=== PATIENT | female | born 1960 | race Caucasian/White ===

== ENCOUNTER → 2017-02-15 | Outpatient (CLI) | payer OTHER ==
[~2017-02-15] MED LIST: ALL DAY ALLERGY10 M2 PO; ANTIVERT 25MG T25 MG PO; ARIMIDEX1 MG PO; CALCIUM600 MG PO; CARAFATE1 GM PO; CELEXA20 MG PO; COLACE 100MG C100 MG PO; DITROPAN 5 MG TA5 MG PO; DULERA 100 MCG8.8 GM INH; FENOFIBRATE160 MG PO; FLOVENT 440.088 GM/I; FOSAMAX70 MG PO; GABAPENTIN600 MG PO; LASIX40 MG PO; METOPROLOL TART25 MG PO; MULTIVITAMINS1 EAC1 PO; NITROSTAT0.4 MG SL; NORCO 5-325 TA1 EACH PO; OMEPRAZOLE40 MG PO; POTASSIUM CHLO20 ME1 PO; SIMVASTATIN20 MG PO; SUMATRIPTAN SU100 MG PO; SYMBICORT 16010.2 GM INH; VENTOLIN HFA 66.7 GM INH; ZOFRAN4 MG PO
== END ==
LOC: KOH-I 13:45
DX: M25.571 Pain in right ankle and joints of right foot (principal); Z98.890 Other specified postprocedural states
CPT/HCPCS: 73721

== ENCOUNTER → 2017-02-18 | Outpatient (CLI) | payer OTHER | LOC: RT 09:52 | DX: I10 Essential (primary) hypertension (principal); M13.862 Other specified arthritis, left knee; G89.4 Chronic pain syndrome; E78.2 Mixed hyperlipidemia; Z88.8 Allergy status to other drugs, medicaments and biological substances; Z88.2 Allergy status to sulfonamides | CPT/HCPCS: 93005 ==

== ENCOUNTER → 2017-03-19 | Outpatient (CLI) | payer OTHER | LOC: RAD 14:06 | DX: K59.09 Other constipation (principal) | CPT/HCPCS: 74000 ==

== ENCOUNTER → 2017-03-25 | Day surgery (SDC) | payer OTHER | END | disposition home or self-care (01) | LOC: OR 06:34 | PROVIDERS: Internal Medicine Gastroenterology | PROC: 0DB68ZX Excision of Stomach, Via Natural or Artificial Opening Endoscopic, Diagnostic (ICD-10-PCS; principal; 2017-03-25 10:25) | DX: K29.50 Unspecified chronic gastritis without bleeding (principal); K44.9 Diaphragmatic hernia without obstruction or gangrene; I10 Essential (primary) hypertension; E78.5 Hyperlipidemia, unspecified; K59.03 Drug induced constipation; E66.9 Obesity, unspecified; Z85.3 Personal history of malignant neoplasm of breast; Z88.2 Allergy status to sulfonamides; Z88.8 Allergy status to other drugs, medicaments and biological substances; Z79.891 Long term (current) use of opiate analgesic; Z79.899 Other long term (current) drug therapy; Z90.49 Acquired absence of other specified parts of digestive tract; Z90.710 Acquired absence of both cervix and uterus | CPT/HCPCS: 74000; J2250; J3010; J7030 ==

== ENCOUNTER → 2020-12-31 | Outpatient (CLI) | payer OTHER ==
[~2020-12-31] MED LIST changes: +24HR ALLERGY REL5 MG PO; +ALBUTEROL2.5 MG/3 M INH; +ARIMIDEX 1 MG TA1 MG PO; +BUSPIRONE HCL5 MG PO; +CALCIUM CITRAT1 EAC4 PO; +CITALOPRAM HBR20 MG PO; +COLACE100 MG PO; +DULERA 200 MCG8.8 GM INH; +EPINEPHRIN0.3 MG/0.3 INJ; +FEXOFENADINE H180 MG PO; +FLEXERIL 10 MG10 MG PO; +FLOMAX 0.4 MG0.4 MG PO; +FLUTICASONE SPRAY; +GABAPENTIN400 MG PO; +GLUCOPHAGE500 MG PO; +IBUPROFEN800 MG PO; +KEFLEX CAP 500500 MG PO; +KEFLEX500 MG PO; +LEVOCETIRIZINE D5 MG PO; +LIORESAL TAB 1010 MG PO; +LOVENOX SY40 MG/0.4 SQ; +MECLIZINE HCL25 MG PO; +MOBIC15 MG PO; +NEURONTIN600 MG PO; +NEURONTIN800 MG PO; +NORCO 10-325 T1 EACH PO; +NORFLEX 100 MG100 MG PO; +PERCOCET 10-321 EACH PO; +PHENERGAN 25 MG25 M1 PO; +PREDNISONE 50 M50 MG PO; +PREDNISONE20 MG PO; +PROTONIX40 MG PO; +SINGULAIR10 MG PO; +SUMATRIPTAN SUC50 MG PO; +TOPROL XL25 MG PO; +TYLENOL 500 MG500 MG PO; +VITAMIN C 500500 MG PO; +VITAMIN C500 M1 PO; +VITAMIN C500 M4 PO; +VOLTAREN GEL 1 % TOP; +WIXELA 250-501 EACH INH
== END ==
LOC: KOH-I 10:45
DX: S99.912A Unspecified injury of left ankle, initial encounter (principal); M79.89 Other specified soft tissue disorders; W19.XXXA Unspecified fall, initial encounter
CPT/HCPCS: 73610

== ENCOUNTER → 2021-01-21 | Outpatient (CLI) | payer OTHER | LOC: KOH-I 10:29 | DX: M84.372A Stress fracture, left ankle, initial encounter for fracture (principal) | CPT/HCPCS: 73610 ==

== ENCOUNTER → 2021-01-31 | Outpatient (CLI) | payer OTHER ==
[2021-01-31 16:53] LABS: HEMOGLOBIN 13.2 gm/dl (12.3-15.3); RED BLOOD COUNT 4.71 M/UL (4.00-5.10); WHITE BLOOD COUNT 13.1 K/UL (4.5-11.0)
[2021-01-31 17:11] LABS: BUN/CREATININE RATIO 19 (0-10)
[2021-02-02 07:09] LABS: CREATININE, URINE 155.8 mg/dL (Not Estab.)
[2021-02-04 16:11] LABS: CHOLESTEROL, TOTAL 177 mg/dL (100-199); HDL SIZE 9.1 nm (>=9.2); HDL-C 47 mg/dL (>39); HDL-P (TOTAL) 28.2 umol/L (>=30.5); LARGE HDL-P 5.5 umol/L (>=4.8); LARGE VLDL-P 9.6 nmol/L (<=2.7); LDL SIZE 20.9 nm (>20.5); LDL SIZE 20.9 nm (>=20.8); LDL-C 98 mg/dL (0-99); LDL-P 1294 nmol/L (<1000); LP-IR SCORE 71 (<=45); SMALL LDL-P 510 nmol/L (<=527); TRIGLYCERIDES 189 mg/dL (0-149); VLDL SIZE 60.1 nm (<=46.6)
== END ==
LOC: LAB 16:07
PROVIDERS: Emergency Medicine
DX: I10 Essential (primary) hypertension (principal); E78.2 Mixed hyperlipidemia; R53.83 Other fatigue; R73.03 Prediabetes
CPT/HCPCS: 36415; 80053; 80061; 82043; 82570; 83036; 83704; 84550; 85025

== ENCOUNTER → 2021-02-11 | Outpatient (CLI) | payer OTHER | LOC: KOH-I 10:41 | DX: S82.52XA Displaced fracture of medial malleolus of left tibia, initial encounter for closed fracture (principal) | CPT/HCPCS: 73610 ==

== ENCOUNTER 2021-04-14 11:49 | Emergency (ER) | payer OTHER | END 2021-04-14 12:40 | disposition left against medical advice (07) | LOC: ER1 11:49 | DX: Z53.21 Procedure and treatment not carried out due to patient leaving prior to being seen by health care provider (principal) ==

== ENCOUNTER → 2021-05-15 | Outpatient (CLI) | payer OTHER | LOC: MAMO 13:00 | DX: Z12.31 Encounter for screening mammogram for malignant neoplasm of breast (principal); Z85.3 Personal history of malignant neoplasm of breast | CPT/HCPCS: 77063; 77067 ==

== ENCOUNTER → 2021-06-23 | Outpatient (CLI) | payer OTHER | LOC: RAD 10:40 | DX: R94.2 Abnormal results of pulmonary function studies (principal); R06.00 Dyspnea, unspecified; H10.45 Other chronic allergic conjunctivitis; J30.1 Allergic rhinitis due to pollen; J30.89 Other allergic rhinitis; K44.9 Diaphragmatic hernia without obstruction or gangrene | CPT/HCPCS: 71046 ==

== ENCOUNTER 2021-07-25 19:39 | Emergency (ER) | payer OTHER ==
[2021-07-25] MEDS ORDERED: MOBIC15 MG PO (22:16)
== END 2021-07-26 22:56 | disposition home or self-care (01) ==
LOC: ER1 19:39
DX: S40.011A Contusion of right shoulder, initial encounter (principal); S80.02XA Contusion of left knee, initial encounter; E78.5 Hyperlipidemia, unspecified; I10 Essential (primary) hypertension; J45.909 Unspecified asthma, uncomplicated; Z90.49 Acquired absence of other specified parts of digestive tract; Z90.710 Acquired absence of both cervix and uterus; Z88.6 Allergy status to analgesic agent; W01.0XXA Fall on same level from slipping, tripping and stumbling without subsequent striking against object, initial encounter
CPT/HCPCS: 73030; 73564; 99283

== ENCOUNTER → 2021-10-20 | Outpatient (CLI) | payer OTHER | LOC: KOH-I 08:22 | DX: S93.492A Sprain of other ligament of left ankle, initial encounter (principal) | CPT/HCPCS: 73721 ==

== ENCOUNTER → 2021-10-28 | Day surgery (SDC) | payer OTHER ==
[~2021-10-28] MED LIST changes: +CELEBREX 100MG100 MG PO; +PROAIR HFA8.5 GM INH; +SEROQUEL25 MG PO; +VITAMIN D250 MCG PO
== END | disposition home or self-care (01) ==
LOC: OR 06:24
DX: Z12.11 Encounter for screening for malignant neoplasm of colon (principal); K21.00 Gastro-esophageal reflux disease with esophagitis, without bleeding; K57.30 Diverticulosis of large intestine without perforation or abscess without bleeding; K31.9 Disease of stomach and duodenum, unspecified; K64.1 Second degree hemorrhoids; K64.4 Residual hemorrhoidal skin tags; K44.9 Diaphragmatic hernia without obstruction or gangrene; K59.03 Drug induced constipation; I10 Essential (primary) hypertension; E78.5 Hyperlipidemia, unspecified; E66.01 Morbid (severe) obesity due to excess calories; Z68.38 Body mass index [BMI] 38.0-38.9, adult; Z88.6 Allergy status to analgesic agent; Z88.2 Allergy status to sulfonamides; Z79.899 Other long term (current) drug therapy; Z20.822 Contact with and (suspected) exposure to COVID-19
CPT/HCPCS: 43239; G0121; J2704; J7040

== ENCOUNTER → 2022-02-13 | Outpatient (CLI) | payer OTHER | LOC: MAMO 02-05 11:00 | DX: C50.519 Malignant neoplasm of lower-outer quadrant of unspecified female breast (principal) | CPT/HCPCS: 77066; G0279 ==

== ENCOUNTER → 2022-03-04 | Outpatient (CLI) | payer OTHER ==
[2022-03-06 11:18] LABS: CHOLESTEROL, TOTAL 209 mg/dL (100-199); HDL SIZE 8.9 nm (>=9.2); HDL-C 46 mg/dL (>39); HDL-P (TOTAL) 27.5 umol/L (>=30.5); LARGE HDL-P 3.5 umol/L (>=4.8); LARGE VLDL-P 5.3 nmol/L (<=2.7); LDL SIZE 20.5 nm (>20.5); LDL SIZE 20.5 nm (>=20.8); LDL-C 143 mg/dL (0-99); LDL-P 1379 nmol/L (<1000); LP-IR SCORE 57 (<=45); SMALL LDL-P 664 nmol/L (<=527); TRIGLYCERIDES 113 mg/dL (0-149); VLDL SIZE 44.5 nm (<=46.6)
== END ==
LOC: LAB 12:18
PROVIDERS: Emergency Medicine
DX: E78.2 Mixed hyperlipidemia (principal); I10 Essential (primary) hypertension; K21.9 Gastro-esophageal reflux disease without esophagitis
CPT/HCPCS: 36415; 80053; 80061; 83704

== ENCOUNTER 2022-03-11 18:14 | Emergency (ER) | payer OTHER ==
[2022-03-11] MEDS ORDERED: ENDOCET 5-3251 EACH PO (21:04)
== END 2022-03-12 00:35 | disposition home or self-care (01) ==
LOC: ER1 18:14
DX: S30.0XXA Contusion of lower back and pelvis, initial encounter (principal); W01.0XXA Fall on same level from slipping, tripping and stumbling without subsequent striking against object, initial encounter; Y92.009 Unspecified place in unspecified non-institutional (private) residence as the place of occurrence of the external cause
CPT/HCPCS: 72100; 72131; 73502; 99284

== ENCOUNTER 2022-06-02 14:29 | Emergency (ER) | payer OTHER ==
[~2022-06-02 14:29] MED LIST changes: +ENDOCET 5-3251 EACH PO
== END 2022-06-02 16:55 | disposition home or self-care (01) ==
LOC: ER1 14:29
DX: M25.512 Pain in left shoulder (principal); I10 Essential (primary) hypertension; E78.5 Hyperlipidemia, unspecified; J45.909 Unspecified asthma, uncomplicated
CPT/HCPCS: 73030; 96372; 99283; J1100; J1885

== ENCOUNTER → 2022-06-09 | Outpatient (CLI) | payer OTHER | LOC: KOH-I 14:46 | DX: M25.572 Pain in left ankle and joints of left foot (principal); M25.571 Pain in right ankle and joints of right foot | CPT/HCPCS: 73610 ==

== ENCOUNTER 2022-07-10 15:52 | Emergency (ER) | payer OTHER ==
[2022-07-10] MEDS ORDERED: OMNICEF 300 MG300 MG PO (20:09)
== END 2022-07-10 20:15 | disposition home or self-care (01) ==
LOC: ER1 15:52
DX: H66.91 Otitis media, unspecified, right ear (principal); I10 Essential (primary) hypertension; J45.909 Unspecified asthma, uncomplicated; E78.5 Hyperlipidemia, unspecified; Z88.2 Allergy status to sulfonamides; Z88.6 Allergy status to analgesic agent; Z88.8 Allergy status to other drugs, medicaments and biological substances
CPT/HCPCS: 99282

== ENCOUNTER → 2022-07-29 | Outpatient (CLI) | payer OTHER ==
[~2022-07-29] MED LIST changes: +OMNICEF 300 MG300 MG PO
== END ==
LOC: KOH-I 14:30
DX: R22.42 Localized swelling, mass and lump, left lower limb (principal); M75.102 Unspecified rotator cuff tear or rupture of left shoulder, not specified as traumatic
CPT/HCPCS: 72192; 73221